=== PATIENT | male | born 1970 | race Two or more races ===

== ENCOUNTER 2022-02-06 04:27 | Day surgery (SDC) | payer BC ==
[2022-02-05 11:47] VITALS: BMI 35.0
[2022-02-06] MEDS ORDERED: LACTATED RINGERS SOLUTION 1,000 ML IV SCH (07:30)
[2022-02-06 12:32] VITALS: TEMP 97.5
[2022-02-06 12:46] VITALS: RESP 15
[2022-02-06 13:16] VITALS: BP 112/66; PULSE 60
== END 2022-02-06 13:17 | disposition home or self-care (01) ==
LOC: JASU-ENDO 04:27
PROVIDERS: ATTEND Internal Medicine Gastroenterology
PROC: 0DJD8ZZ Inspection of Lower Intestinal Tract, Via Natural or Artificial Opening Endoscopic (ICD-10-PCS; principal; 2022-02-06 12:15)
DX: Z12.11 Encounter for screening for malignant neoplasm of colon (principal); Z86.010 Personal history of colon polyps; K64.8 Other hemorrhoids